=== PATIENT | male | born 1980 | race Caucasian/White ===

== ENCOUNTER 2021-02-25 08:47 | Outpatient (CLI) | payer OTHER, SELFPAY ==
[2021-02-25 09:13] LABS: Basophils Absolute Auto 0.1 K/mm3 (0.0-0.1); Basophils Percent Auto 0.5 % (0.2-1.2); Eosinophils Absolute Auto 0.6 K/mm3 (0-0.3); Eosinophils Percent Auto 6.2 % (0-4.4); Hematocrit 43.9 % (42.0-52.0); Hemoglobin 14.9 g/dL (14.0-18.0); Immature Granulocyte Absolute 0.02 K/mm3 (0.00-0.031); Immature Granulocyte Percent A 0.2 % (0-0.5); Lymphocytes Absolute Auto 2.53 K/mm3 (0.9-3.2); Mean Corpuscular HGB Conc 33.9 g/dl (32-36); Mean Corpuscular Volume 91.3 fl (80-100); Mean Platelet Volume 10.1 fl (7.4-10.4); Monocytes Absolute Auto 0.6 K/mm3 (0.1-0.6); Monocytes Percent Auto 5.9 % (2.6-8.5); Neutrophils Absolute Auto 6.3 K/mm3 (1.3-6.7); Neutrophils Percent Auto 62.2 % (45.5-73.1); Platelet Count Result 208 k/mm3 (150-375); Red Blood Count 4.81 M/mm3 (4.6-6.20); Red Cell Distribution Width 12.9 % (11.5-14.5); White Blood Count 10.1 K/mm3 (4.5-10.0)
[2021-02-25 09:23] LABS: Alanine Aminotransferase 25 U/L (4-50); Albumin Level 4.4 g/dL (3.5-5.1); Alkaline Phosphatase 78 U/L (38-126); Anion Gap 6 mmol/L (8-16); Aspartate Amino Transferase 32 U/L (17-59); Bilirubin,Total 0.3 mg/dL (0.2-1.3); Blood Urea Nitrogen 10 mg/dL (9-20); Calcium 9.8 mg/dL (8.4-10.2); Carbon Dioxide 29 mmol/L (22-30); Chloride 107 mmol/L (98-107); Estimated Glomerular Filt Rate > 60; Glucose 84 mg/dL (75-110); Potassium 4.1 mmol/L (3.4-5.0); Sodium 142 mmol/L (137-145)
[2021-02-25 09:53] LABS: Prostate Specific Antigen 0.9 ng/mL (< OR = 4.0)
[2021-02-25 10:19] LABS: Vitamin D 25 Hydroxy 58.8 ng/mL
[2021-02-28 06:00] LABS: FSH 5.9 mIU/mL (1.6-8.0); LH 4.1 mIU/mL (1.5-9.3); Prolactin 7.5 ng/mL (***)
[2021-02-28 11:46] LABS: DHEA-Sulfate 127 mcg/dL (106-464); Sex Hormone Binding Globulin 46 nmol/L (10-50)
[2021-02-28 19:02] LABS: Testosterone Free 80.1 pg/mL (35.0-155.0); Testosterone Total 602 ng/dL (250-1100)
[2021-03-02 21:33] LABS: Estradiol, Ultrasensitive 15 pg/mL (< OR = 29)
== END 2021-02-25 08:48 | disposition home or self-care (01) ==
LOC: ANHLAB 08:53
PROVIDERS: PCP Family Medicine
DX: Z00.01 Encounter for general adult medical examination with abnormal findings (principal); E56.8 Deficiency of other vitamins; R68.82 Decreased libido; N52.8 Other male erectile dysfunction; E53.8 Deficiency of other specified B group vitamins; N40.0 Benign prostatic hyperplasia without lower urinary tract symptoms
CPT/HCPCS: 36415; 80053; 82306; 82607; 82627; 82670; 83001; 83002; 84146; 84153; 84270; 84402; 84403; 85025

== ENCOUNTER 2021-12-17 08:48 | Outpatient (CLI) | payer OTHER, SELFPAY ==
[2021-12-17 09:11] LABS: Basophils Percent Auto 0.4 % (0.2-1.2); Eosinophils Absolute Auto 0.3 K/mm3 (0-0.3); Eosinophils Percent Auto 3.1 % (0-4.4); Hematocrit 50.6 % (42.0-52.0); Immature Granulocyte Absolute 0.02 K/mm3 (0.00-0.031); Immature Granulocyte Percent A 0.2 % (0-0.5); Lymphocytes Percent Auto 24.5 % (18.3-44.2); Mean Corpuscular HGB Conc 33.6 g/dl (32-36); Mean Corpuscular Hemoglobin 31.7 pg (26-34); Mean Corpuscular Volume 94.4 fl (80-100); Mean Platelet Volume 10.2 fl (7.4-10.4); Monocytes Absolute Auto 0.6 K/mm3 (0.1-0.6); Neutrophils Absolute Auto 6.4 K/mm3 (1.3-6.7); Neutrophils Percent Auto 65.8 % (45.5-73.1); Platelet Count Result 182 k/mm3 (150-375); Red Blood Count 5.36 M/mm3 (4.6-6.20); Red Cell Distribution Width 13.2 % (11.5-14.5); White Blood Count 9.8 K/mm3 (4.5-10.0)
[2021-12-17 09:22] LABS: Alanine Aminotransferase 23 U/L (4-50); Albumin Level 4.3 g/dL (3.5-5.1); Alkaline Phosphatase 60 U/L (38-126); Anion Gap 6 mmol/L (8-16); Aspartate Amino Transferase 30 U/L (17-59); Bilirubin,Total 0.4 mg/dL (0.2-1.3); Blood Urea Nitrogen 13 mg/dL (9-20); Calcium 9.4 mg/dL (8.4-10.2); Carbon Dioxide 28 mmol/L (22-30); Chloride 105 mmol/L (98-107); Estimated Glomerular Filt Rate > 60; Glucose 85 mg/dL (65-110); Potassium 4.4 mmol/L (3.4-5.0); Sodium 139 mmol/L (137-145)
[2021-12-17 09:53] LABS: Prostate Specific Antigen 0.8 ng/mL (< OR = 4.0)
[2021-12-21 19:52] LABS: Testosterone Free 277.5 pg/mL (35.0-155.0); Testosterone Total 1273 ng/dL (250-1100)
[2021-12-23 20:08] LABS: Sex Hormone Binding Globulin 39 nmol/L (10-50)
[2021-12-24 22:05] LABS: Estradiol, Ultrasensitive 15 pg/mL (< OR = 29)
== END 2021-12-17 08:49 | disposition home or self-care (01) ==
LOC: ANHLAB 08:51
PROVIDERS: Visit Provider Chiropractor
DX: Z12.5 Encounter for screening for malignant neoplasm of prostate (principal); Z51.81 Encounter for therapeutic drug level monitoring; Z79.890 Hormone replacement therapy; D75.1 Secondary polycythemia; N52.8 Other male erectile dysfunction; E29.1 Testicular hypofunction
CPT/HCPCS: 36415; 80053; 82670; 84153; 84270; 84402; 84403; 85025

== ENCOUNTER 2022-01-05 12:04 | Emergency (ER) | payer OTHER, SELFPAY ==
--- NOTE | ~2022-01-05 | XR_ITS ---
XR lumbar spine 2-3V DATE: 01/05/2022 14:17 INDICATION: Low back pain since last night. TECHNIQUE: AP, lateral, coned lateral lumbosacral views COMPARISON: 04/17/2014 lumbar spine FINDINGS: Again noted is anterior and interbody surgical spinal fusion at L5-S1, present on 04/17/2014 . There is mild levoscoliosis of the lower thoracic and lumbar spine. Included lower thoracic and lumbar pedicles are intact. No lumbar spine fracture or bone destruction is evident. There is mild degenerative disc disease at L1-2, moderate degenerative disc disease at L2-3 and mild degenerative disc disease at L4-5. The sacroiliac joints are intact. IMPRESSION: Status post anterior and interbody spinal fusion at L5-S1 Mild levoscoliosis Mild to moderate degenerative disc disease Reviewed, dictated and finalized at location A.
[2022-01-05 12:07] VITALS: BP 138/94; PULSE 92; RESP 24; O2SAT 99
--- NOTE | 2022-01-05 13:58 | ED.BACK ---
HPI - Back Pain/Injury General Chief Complaint: Back Pain/Injury Stated Complaint: back pain Time Seen by Provider: 01/05/22 13:40 Source: patient, family and RN notes reviewed Mode of arrival: ambulatory Limitations: no limitations History of Present Illness HPI Narrative: 41-year-old male presenting to the emergency department for evaluation of right lower back pain. Patient reports yesterday he injured his back while stretching his back. Patient feels that he does have an entrapped nerve root. Patient does report pain down the right extremity but denies any numbness or weakness. Patient does have a prior history of lumbar fusion approximately 15 years ago. Related Data Home Medications Medication Instructions Recorded Confirmed ibuprofen [Advil] 200 mg PO Q6H PRN 08/08/19 01/19/20 Allergies Allergy/AdvReac Type Severity Reaction Status Date / Time No Known Allergies Allergy Verified 01/19/20 12:14 Review of Systems Review of Systems: CONSTITUTIONAL: Denies fever, chills, or sweats. EYES: Denies visual changes, redness, or discharge. ENT: Denies rhinorrhea, congestion, sore throat, or otalgia. CARDIOVASCULAR: Denies chest pain, palpitations, or edema. RESPIRATORY: Denies cough or dyspnea. GASTROINTESTINAL: Denies abdominal pain, nausea, vomiting, or diarrhea. GENITOURINARY: Denies dysuria or hematuria. SKIN: Denies rash or itching. MUSCULOSKELETAL: See HPI NEUROLOGIC: See HPI [facility] Surgical History Surgical History Previous back surgery Family History Family History Father Family history of coronary artery disease Social History Social History Smoking status: Heavy tobacco smoker Smoking end date: 09/07/12 Alcohol intake: current Exam Narrative: APPEARANCE: Distressed due to back pain HEAD: normocephalic, atraumatic. EYES: PERRLA/EOMI, conjunctivae clear. NECK: Supple. No adenopathy, no masses. RESPIRATORY: Airway patent, respirations nonlabored. Clear to auscultation bilaterally, no rales, rhonchi, wheezing. CARDIOVASCULAR: Regular rate and rhythm without murmurs rubs or gallops. ABDOMINAL: Soft, nontender, nondistended, normal bowel sounds MUSCULOSKELETAL: Moves all extremities. Strength/ROM intact, No edema, No calf tenderness. No midline spinal tenderness to palpation. Patient does have right-sided paraspinal muscular tenderness. NEURO: Alert. Cranial nerves II through XII intact. Grossly intact. Normal strength and reflexes SKIN: Warm, dry. Normal Color PSYCHIATRIC: Normal affect/mood. Course Vital Signs Vital signs: Vital Signs Pulse Rate 92 01/05/22 12:07 Respiratory Rate 24 H 01/05/22 12:07 Blood Pressure 138/94 H 01/05/22 12:07 Pulse Oximetry 99 01/05/22 12:07 Pulse Rate 92 01/05/22 12:07 Respiratory Rate 24 H 01/05/22 12:07 Blood Pressure 138/94 H 01/05/22 12:07 Pulse Oximetry 99 01/05/22 12:07 MDM - Back Pain/Injury MDM Narrative Medical decision making narrative: Patient is neurologically and intact. X-ray was negative for acute abnormality. Imaging Data Radiologist's impression: Impressions Lumbar Spine X-Ray 01/05/22 14:22 IMPRESSION: Status post anterior and interbody spinal fusion at L5-S1 Mild levoscoliosis Mild to moderate degenerative disc disease Discharge Plan Discharge Clinical Impression: Lumbar radiculopathy Patient Disposition: Home, Self-Care Condition: Stable Instructions: Antibiotic Form, Acute Low Back Pain (ED), Lumbar Radiculopathy (ED) Additional Instructions: Medrol Dosepak as directed. Flexeril as directed for muscle spasm. [place] as needed for pain control. Have close follow-up with your primary care physician. If you have any worsening symptoms or if you have any questions or concerns and please call or return
[2022-01-05] MEDS: CYCLOBENZAPRINE HCL 10 MG TABLET PO (14:26)
[2022-01-05] MEDS: HYDROmorphone HCL INJ (*CRX) 1 MG/ML SYR IV PUSH (14:26)
[2022-01-05] MEDS: methylPREDNISolone 4 MG TABLET PO (14:37)
== END 2022-01-05 15:15 | disposition home or self-care (01) ==
PROVIDERS: Emergency Provider Emergency Medicine; PCP Physician Assistant
DX: M54.16 Radiculopathy, lumbar region (principal); F17.210 Nicotine dependence, cigarettes, uncomplicated; Z98.1 Arthrodesis status
CPT/HCPCS: 72100; 96374; 99284; A9270; J1170

== ENCOUNTER 2022-11-18 09:10 | Outpatient (CLI) | payer OTHER, SELFPAY ==
[2022-11-18 09:59] LABS: Basophils Absolute Auto 0.1 K/mm3 (0.0-0.1); Basophils Percent Auto 0.5 % (0.2-1.2); Eosinophils Absolute Auto 0.6 K/mm3 (0-0.3); Eosinophils Percent Auto 5.9 % (0-4.4); Hematocrit 45.5 % (42.0-52.0); Hemoglobin 15.6 g/dL (14.0-18.0); Immature Granulocyte Absolute 0.02 K/mm3 (0.00-0.031); Immature Granulocyte Percent A 0.2 % (0-0.5); Lymphocytes Absolute Auto 1.67 K/mm3 (0.9-3.2); Lymphocytes Percent Auto 17.5 % (18.3-44.2); Mean Corpuscular HGB Conc 34.3 g/dl (32-36); Mean Corpuscular Hemoglobin 30.7 pg (26-34); Mean Corpuscular Volume 89.6 fl (80-100); Mean Platelet Volume 10.1 fl (7.4-10.4); Monocytes Absolute Auto 0.6 K/mm3 (0.1-0.6); Monocytes Percent Auto 6.1 % (2.6-8.5); Neutrophils Absolute Auto 6.7 K/mm3 (1.3-6.7); Neutrophils Percent Auto 69.8 % (45.5-73.1); Platelet Count Result 228 k/mm3 (150-375); Red Blood Count 5.08 M/mm3 (4.6-6.20); Red Cell Distribution Width 13.5 % (11.5-14.5); White Blood Count 9.6 K/mm3 (4.5-10.0)
[2022-11-18 10:09] LABS: Alanine Aminotransferase 25 U/L (6-50); Albumin Level 4.3 g/dL (3.5-5.1); Alkaline Phosphatase 67 U/L (38-126); Anion Gap 4 mmol/L (8-16); Aspartate Amino Transferase 38 U/L (17-59); Bilirubin,Total 0.7 mg/dL (0.2-1.3); Blood Urea Nitrogen 11 mg/dL (9-20); Calcium 8.9 mg/dL (8.4-10.2); Carbon Dioxide 30 mmol/L (22-30); Chloride 105 mmol/L (98-107); Estimated Glomerular Filt Rate > 60; Glucose 98 mg/dL (65-110); Sodium 139 mmol/L (137-145)
[2022-11-18 10:40] LABS: Prostate Specific Antigen 0.8 ng/mL (< OR = 4.0)
[2022-11-22 15:51] LABS: Sex Hormone Binding Globulin 30 nmol/L (10-50)
[2022-11-23 16:45] LABS: Testosterone Free 246.3 pg/mL (35.0-155.0); Testosterone Total 1244 ng/dL (250-1100)
[2022-11-25 21:46] LABS: Estradiol, Ultrasensitive 49 pg/mL (< OR = 29)
== END 2022-11-18 09:11 | disposition home or self-care (01) ==
PROVIDERS: PCP Physician Assistant; Visit Provider Chiropractor
DX: D75.1 Secondary polycythemia (principal); N52.8 Other male erectile dysfunction; E29.1 Testicular hypofunction; Z79.890 Hormone replacement therapy; Z12.5 Encounter for screening for malignant neoplasm of prostate
CPT/HCPCS: 36415; 80053; 82670; 84153; 84270; 84402; 84403; 85025